=== PATIENT | male | born 1995 | race Caucasian/White ===

== ENCOUNTER 2020-09-25 14:36 | Emergency (ER) | payer BC ==
--- NOTE | 2020-09-25 15:05 | NUR ---
PT LEFT WITHOUT BEING SEEN.
== END 2020-09-25 15:05 | disposition left against medical advice (07) ==
LOC: MED 14:36
DX: R10.9 Unspecified abdominal pain (principal); Z53.21 Procedure and treatment not carried out due to patient leaving prior to being seen by health care provider

== ENCOUNTER 2020-09-27 13:02 | Emergency (ER) | payer BC ==
[~2020-09-27] VITALS: Ht 185.4 cm; Wt 97.5 kg
[2020-09-27 13:10] VITALS: BP 140/77
--- NOTE | 2020-09-27 13:15 | NUR ---
Patient ambulated to bed 8. RN evaluating the patient at bedside.
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
--- NOTE | 2020-09-27 13:24 | NUR ---
Dr. Peguero is evaluating the patient at bedside.
--- NOTE | 2020-09-27 13:45 | NUR ---
Patient transported to [facility] via wheelchair.
--- NOTE | 2020-09-27 13:55 | NUR ---
Patient returned from Xray via wheelchair.
[2020-09-27] MEDS ORDERED: CYCL-654 PO (14:29)
--- NOTE | 2020-09-27 14:35 | NUR ---
Patient resting in position of comfort; semi-fowlers. Bed locked in lowest position, side rails x 1, call light in reach. Respirations even/unlabored. All pt needs met at this time.
[2020-09-27 14:40] VITALS: BP 136/72
--- NOTE | 2020-09-27 14:40 | NUR ---
dcPatient discharged with v/s stable. Written and verbal after care instructions given and explained. Patient alert, oriented and verbalized understanding of instructions. Ambulatory with steady gait. All questions addressed prior to discharge. ID band removed. Patient advised to follow up with PMD. Rx of Cyclobenzaprine Hcl given. Patient educated on indication of medication including possible reaction and side effects. Opportunity to ask questions provided and answered.
== END 2020-09-27 14:40 | disposition home or self-care (01) ==
LOC: MED 13:02
DX: R07.89 Other chest pain (principal); Z79.899 Other long term (current) drug therapy
CPT/HCPCS: 71046; 99283